=== PATIENT | female | born 1980 | race African-American/Black ===

== ENCOUNTER 2022-03-29 12:54 | Inpatient (IN) ==
[2022-03-29] MEDS ORDERED: LACTATED RINGERS 500 ML IV PRN (13:09)
[2022-03-29] MEDS ORDERED: CARBOPROST TROMETHAMINE 250 MCG/ML AMP IM PRN (13:09)
[2022-03-29] MEDS ORDERED: TRANEXAMIC ACID 1,000 MG in SODIUM CHLORIDE 0.9% 100 ML IV PRN (13:09)
[2022-03-29] MEDS ORDERED: miSOPROStoL 200 MCG TABLET RECTAL PRN (13:09)
[2022-03-29] MEDS ORDERED: METHYLERGONOVINE 0.2 MG/1 ML AMP IM PRN (13:09)
[2022-03-29] MEDS ORDERED: LACTATED RINGERS 250 ML IV ONE (13:09)
[2022-03-29] MEDS ORDERED: OXYTOCIN/LR 20 UNIT/1,000 ML BAG IV ONE ×2 (13:09→17:01)
[2022-03-29] MEDS ORDERED: ONDANSETRON 4 MG/2 ML VIAL IV PRN ×2 (13:09→17:01)
[2022-03-29 13:34] LABS: Basophils % 0.4 % (0.0-0.8); Eosinophils # 0.3 10*3/uL (0.0-0.87); Eosinophils % 2.8 % (0.00-10.9); Hematocrit 31.2 VOL% (35.7-47.0); Hemoglobin 10.1 GM/DL (12.0-16.0); Immature Granulocytes Absolute 0.49 #; Lymphocytes # 1.4 10*3/uL (1.4-4.0); Lymphocytes % 14.1 % (21.3-54.2); Mean Corpuscular HGB Conc 32.4 GM/DL (32-36); Mean Corpuscular Volume 96.3 FL (87-102); Mean Platelet Volume 11.5 FL (9.6-12.0); Monocytes # 0.6 10*3/uL (0.11-0.8); Monocytes % 6.5 % (1.7-12.7); Neutrophils % 71.2 % (38.7-73.9); Platelet Count 165 T/CUMM (130-400); Red Blood Count 3.24 MC/CUMM (3.8-5.5); White Blood Count 9.8 T/CUMM (4-12)
[2022-03-29 13:45] LABS: INR 0.9; PT Patient Result 10.1 SECS (10.1-12.1); Partial Thromboplastin Time 25.8 SECS (23.7-32.9)
[2022-03-29 14:04] LABS: Albumin 2.6 G/DL (3.4-5.0); Bilirubin,Direct 0.17 MG/DL (0.0-0.20); Bilirubin,Total 0.6 MG/DL (0.20-1.00); Calcium 8.9 MG/DL (8.5-10.1); Osmolality,Calculated 276.3 MOS/KG (273-304); Potassium 3.6 MMOL/L (3.5-5.1); Total Protein 6.3 G/DL (6.4-8.2); Uric Acid 4.5 MG/DL (2.6-6.0)
[2022-03-29] MEDS ORDERED: NIFEdipine 10 MG CAPSULE PO ONE (14:25)
[2022-03-29] MEDS ORDERED: CITRIC ACID/SODIUM CITRATE 30 ML UDCUP PO ONE (14:35)
[2022-03-29] MEDS ORDERED: ceFAZolin 2,000 MG/50 ML DUPLEX IV ONE (14:35)
[2022-03-29] MEDS ORDERED: OXYTOCIN/LR 30 UNIT/1,000 ML BAG IV ONE (14:39)
[2022-03-29] MEDS ORDERED: TRANEXAMIC ACID 1,000 MG/10 ML VIAL ONE (14:49)
[2022-03-29] MEDS ORDERED: miSOPROStoL 200 MCG TABLET ONE (14:49)
[2022-03-29] MEDS ORDERED: SODIUM CHLORIDE 0.9% 0 ML IV ONE (14:50)
[2022-03-29] MEDS ORDERED: CARBOPROST TROMETHAMINE 250 MCG/ML AMP IM ONE (14:50)
[2022-03-29] MEDS ORDERED: OXYTOCIN 10 UNIT/ML VIAL IM ONE (14:54)
[2022-03-29] MEDS: LACTATED RINGERS 1,000 ML IV SCH ×2 (14:55→15:46)
[2022-03-29] MEDS ORDERED: DEXAMETHASONE 4 MG/1 ML VIAL ONE (14:57)
[2022-03-29] MEDS ORDERED: buprenorphine HCL 0.3 MG/ML VIAL ONE (14:57)
[2022-03-29] MEDS ORDERED: KETOROLAC 30 MG/1 ML VIAL ONE (14:57)
[2022-03-29] MEDS ORDERED: ONDANSETRON 4 MG/2 ML VIAL ONE (14:57)
[2022-03-29] MEDS ORDERED: BUPIVACAINE SPINAL 0.75% 2 ML AMP SPINAL ONE (14:57)
[2022-03-29] MEDS ORDERED: ACETAMINOPHEN INJ 1,000 MG/100 ML VIAL IV ONE (14:57)
[2022-03-29] MEDS ORDERED: LACTATED RINGERS 1,000 ML IV SCH ×2 (15:00→17:30)
[2022-03-29] MEDS ORDERED: FAMOTIDINE 20 MG/2 ML VIAL IV ONE ×2 (15:38→15:39)
[2022-03-29] MEDS ORDERED: FAMOTIDINE 20 MG TABLET PO ONE (15:42)
[2022-03-29] MEDS ORDERED: PHENYLEPHRINE 1 MG/10 ML SYRINGE IV ONE ×2 (16:06→16:23)
[2022-03-29] MEDS ORDERED: ePHEDrine 50 MG/ML VIAL ONE (16:08)
[2022-03-29] MEDS ORDERED: FUROSEMIDE 40 MG/4 ML VIAL ONE (16:36)
[2022-03-29] MEDS ORDERED: ACETAMINOPHEN 325 MG TABLET PO PRN (17:01)
[2022-03-29] MEDS ORDERED: IBUPROFEN 800 MG TABLET PO PRN (17:01)
[2022-03-29] MEDS ORDERED: RHO(D) IMMUNE GLOBULIN 300 MCG SYRINGE IM ONE (17:01)
[2022-03-29 17:48] LABS: Cord Arterial Blood HCO3 21.3 MMOL/L; Cord Venous Blood HCO3 22.8 MMOL/L; Cord Venous Blood PCO2 41.7 MMHG; Cord Venous Blood PO2 34.2
[2022-03-29 18:54] LABS: Hematocrit 29.9 VOL% (35.7-47.0); Hemoglobin 9.3 GM/DL (12.0-16.0)
[2022-03-29] MEDS: DOCUSATE SODIUM 100 MG CAPSULE PO SCH (21:16)
[2022-03-29 21:19] LABS: Bacteria,Urine Occasional /HPF (Few); Mucus,Urine Occasional /LPF (Occasional); RBC,Urine 1 /HPF (0-4); Squamous Epithelial Cell,Urine Occasional /HPF (0-10)
[2022-03-29 21:20] LABS: Glucose,Urine (UA) Negative (Negative); Ketones,Urine 15 mg/dL (Negative); Nitrite,Urine Negative (Negative); Protein,Urine Negative (Negative); Urine Appearance Clear (Clear); Urine Color Yellow (Yellow); Urine Specific Gravity 1.015 (1.001-1.035)
[2022-03-29 21:21] LABS: Bilirubin,Urine Negative (Negative); Blood, Urine Trace mg/dL (Negative); Urine Urobilinogen 0.2 eU/dL (<2.0)
[2022-03-29] MEDS: FUROSEMIDE 40 MG/4 ML VIAL IV SCH (22:49)
[2022-03-29] MEDS: KETOROLAC 30 MG/1 ML VIAL IV SCH (22:56)
[2022-03-30] MEDS: ACETAMINOPHEN 500 MG TABLET PO SCH ×2 (01:33→05:08)
[2022-03-30] MEDS: FUROSEMIDE 40 MG/4 ML VIAL IV SCH ×2 (04:25→11:00)
[2022-03-30] MEDS: KETOROLAC 30 MG/1 ML VIAL IV SCH ×2 (04:31→09:43)
[2022-03-30 05:29] LABS: Basophils # 0.1 10*3/uL (0.0-0.2); Basophils % 0.3 % (0.0-0.8); Eosinophils % 0.2 % (0.00-10.9); Hematocrit 24.4 VOL% (35.7-47.0); Hemoglobin 7.8 GM/DL (12.0-16.0); Immature Granulocytes % 3.1 %; Immature Granulocytes Absolute 0.45 #; Lymphocytes # 1.5 10*3/uL (1.4-4.0); Lymphocytes % 10.2 % (21.3-54.2); Mean Corpuscular Volume 96.4 FL (87-102); Mean Platelet Volume 11.9 FL (9.6-12.0); Neutrophils % 79.2 % (38.7-73.9); Platelet Count 154 T/CUMM (130-400); Red Blood Count 2.53 MC/CUMM (3.8-5.5); Red Cell Distribution Width 15.9 % (9.3-17.3); White Blood Count 14.3 T/CUMM (4-12)
[2022-03-30] MEDS ORDERED: MULTIVITAMIN (PRENATAL) TABLET PO SCH (09:00)
[2022-03-30] MEDS: METOCLOPRAMIDE 10 MG TABLET PO SCH ×2 (09:42→20:38)
[2022-03-30] MEDS: DOCUSATE SODIUM 100 MG CAPSULE PO SCH ×2 (09:42→20:38)
[2022-03-30] MEDS: MAGNESIUM HYDROXIDE SUSP 30 ML UDCUP PO PRN (09:42)
[2022-03-30] MEDS: SIMETHICONE CHEW 80 MG TABLET PO PRN ×2 (09:42→20:39)
[2022-03-30] MEDS ORDERED: SODIUM CHLORIDE 0.9% 1,000 ML IV PRN (10:18)
[2022-03-30 21:33] LABS: Hematocrit 29.8 VOL% (35.7-47.0); Hemoglobin 9.9 GM/DL (12.0-16.0)
[2022-03-30 21:57] LABS: Albumin 2.4 G/DL (3.4-5.0); Bilirubin,Total 0.4 MG/DL (0.20-1.00); Calcium 7.9 MG/DL (8.5-10.1); Osmolality,Calculated 275.5 MOS/KG (273-304); Potassium 3.5 MMOL/L (3.5-5.1)
[2022-03-31] MEDS: METOCLOPRAMIDE 10 MG TABLET PO SCH (04:09)
[2022-03-31] MEDS: DOCUSATE SODIUM 100 MG CAPSULE PO SCH (09:47)
[2022-03-31] MEDS: SIMETHICONE CHEW 80 MG TABLET PO PRN (09:48)
[2022-03-31] MEDS: MAGNESIUM HYDROXIDE SUSP 30 ML UDCUP PO PRN (09:48)
[2022-03-31] MEDS ORDERED: BISACODYL 10 MG SUPP RECTAL ONE (10:23)
[2022-03-31 17:03] VITALS: BP 151/93
== END 2022-03-31 14:35 | disposition home or self-care (01) | DRG 788 ==
LOC: N.LDOUT 12:54 → N.LD 12:56 → N.OB 22:10
PROVIDERS: ADMIT Obstetrics & Gynecology; ATTEND Obstetrics & Gynecology
PROC: LDCSECT (ICD-10-PCS; 2022-03-29 15:51)